=== PATIENT | male | born 1940 | race Two or more races ===

== ENCOUNTER → 2024-08-18 | Outpatient (CLI) | payer OTHER, SELFPAY ==
--- NOTE | 2024-08-18 | XR_ITS ---
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
--- NOTE | 2024-08-18 | XR_ITS ---
EXAMINATION: Cervical spine, 5 views Technique: Cervical spine AP, AP odontoid, lateral, bilateral obliques, 5 views Exam date and time: August 18, 2024 1211 hours INDICATIONS: Chronic back and neck pain 20 years FINDINGS: Straightening normal cervical lordosis No cervical fracture Advanced disc narrowing C5-C6 C6-C7 with mild to moderate diffuse bilateral neural foraminal stenosis Intact odontoid IMPRESSION: Advanced degenerative disc disease C5-C6, C6-C7
== END | disposition home or self-care (01) ==
PROVIDERS: PCP Internal Medicine; Referring Provider Chiropractor; Visit Provider Chiropractor
DX: M47.816 Spondylosis without myelopathy or radiculopathy, lumbar region (principal); M51.369 Other intervertebral disc degeneration, lumbar region without mention of lumbar back pain or lower extremity pain; M48.061 Spinal stenosis, lumbar region without neurogenic claudication; M48.02 Spinal stenosis, cervical region
CPT/HCPCS: 72050; 72110